=== PATIENT | male | born 1940 | race Caucasian/White ===

== ENCOUNTER 2018-06-30 08:19 | Emergency (ER) | payer MEDICARE, BC ==
[~2018-06-30] VITALS: Ht 170.2 cm; Wt 99.0 kg
[2018-06-30 08:25] VITALS: BP 130/80
[2018-06-30] MEDS ORDERED: pantoprazole 40mg Tablet.DR PO ONE (09:20)
[2018-06-30] MEDS ORDERED: famotidine 20mg tablet PO ONE (09:20)
== END 2018-06-30 10:34 | disposition home or self-care (01) ==
LOC: ER 08:20
DX: R07.89 Other chest pain (principal); M54.9 Dorsalgia, unspecified; E78.00 Pure hypercholesterolemia, unspecified; I10 Essential (primary) hypertension; K21.9 Gastro-esophageal reflux disease without esophagitis
CPT/HCPCS: 36415; 84484; 93005; 99284

== ENCOUNTER 2019-04-20 12:50 | Day surgery (SDC) | payer MEDICARE, BC ==
[~2019-04-20] VITALS: Ht 170.2 cm; Wt 95.1 kg
[~2019-04-20 12:50] MED LIST: LISI40TA4 PO; SIMV-42 PO; famotidine 20mg tablet PO ONE; ringers solution, lacted 1,000 ML IV SCH
[2019-04-20] MEDS ORDERED: cefazolin/dext.iso 2gm/50ml 50 ML IV ONE (13:45)
[2019-04-20] MEDS ORDERED: BUPIVAcaine/PF 2.5 mg/ml (0.25%) 30ml vial ONE (13:46)
[2019-04-20] MEDS ORDERED: LIDOcaine 1% 30ml preserv. free vial ONE (13:46)
[2019-04-20 14:08] VITALS: BP 122/80
[2019-04-20 14:12] VITALS: BP 122/80
[2019-04-20 14:17] LABS: ALBUMIN 4.2 G/DL (3.4-5.0); ALBUMIN/GLOBULIN RATIO 1.3 (1.1-1.5); ALKALINE PHOSPHATASE 53 IU/L (46-116); BLOOD UREA NITROGEN 26 MG/DL (7-18); BUN/CREATININE RATIO 23.6 (5.4-32.0); CALCIUM 8.7 MG/DL (8.5-10.1); CHLORIDE 106 MMOL/L (99-107); PRE OP ALT 38 U/L (30-65); PRE OP ANION GAP 11 (8-16); PRE OP AST 32 U/L (10-37); PRE OP BILIRUB, TOTAL 1.3 MG/DL (0.0-1.0); PRE OP GLUCOSE 94 MG/DL (70-104); PRE OP POTASSIUM 4.1 MMOL/L (3.4-5.1); PRE OP SODIUM 141 MMOL/L (135-145); TOTAL CARBON DIOXIDE 24.3 MMOL/L (24-32); TOTAL PROTEIN 7.5 G/DL (6.4-8.2); eGFR 65 ML/MIN
[2019-04-20 14:19] LABS: BASOPHILS % (AUTO) 0.8 % (0-1); EOSINOPHILS # (AUTO) 0.1 X10'3 (0-0.9); EOSINOPHILS % (AUTO) 1.2 % (0-6); LYMPHOCYTES # (AUTO) 1.6 X10'3 (1.1-4.8); MEAN CORPUSCULAR HGB CONC 34.4 g/dL (33.0-36.5); MEAN CORPUSCULAR VOLUME 98.7 FL (78-98); MEAN PLATELET VOLUME 9.4 FL (7.4-10.4); MONOCYTES # (AUTO) 0.3 X10'3 (0-0.9); MONOCYTES % (AUTO) 7.4 % (2-12); NEUTROPHILS # (AUTO) 2.7 X10'3 (1.8-7.7); NEUTROPHILS % (AUTO) 56.6 % (42-75); PRE OP HEMATOCRIT 43.7 % (42.0-52.0); PRE OP HEMOGLOBIN 15.1 g/dL (14.0-17.9); PRE OP PLATELET COUNT 130 X10'3 (140-440); RED BLOOD COUNT 4.43 X10'6 (4.70-6.10); RED CELL DISTRIBUTION WIDTH 13.5 % (11.5-14.5)
[2019-04-20] MEDS ORDERED: fentaNYL/PF 50MCG/1 ML 2ML syringe ONE (14:29)
[2019-04-20] MEDS ORDERED: MIDAZolam 5mg/5ml vial ONE (14:29)
[2019-04-20 15:15] VITALS: BP 109/77
--- NOTE | 2019-04-20 15:15 | NUR ---
ADMITTED TO PACU FROM OR ACCOMPANIED BY ANESTHESIA. INTIAL PHYSICAL ASSESSMENT DONE AND RECORDED. AWAKE AND RESPONSE ON ARRIVE YO PACU, REPORT RECEIVED FROM ANESTHESIA.
[2019-04-20 15:25] VITALS: BP 108/78
[2019-04-20 15:35] VITALS: BP 110/70
[2019-04-20 15:45] VITALS: BP 107/75
--- NOTE | 2019-04-20 16:00 | NUR ---
Discharge criteria met, discharge instructions given, demonstrates verbal understanding. Discharged home in good condition.
[2019-04-20] MEDS ORDERED: ringers solution, lacted 1,000 ML IV SCH (16:38)
[2019-04-20] MEDS ORDERED: ondansetron/PF 4mg/2ml inj IV PRN (16:40)
[2019-04-20] MEDS ORDERED: meperidine/PF 25mg/ml syringe IV PRN ×3 (16:40)
[2019-04-20] MEDS ORDERED: proCHLORperazine 10 MG/2 ml inj IV PRN (16:40)
[2019-04-20] MEDS ORDERED: morphine 4 MG/ML inj SYRINge IV PRN ×2 (16:40)
== END 2019-04-20 16:00 | disposition home or self-care (01) ==
LOC: PAS 12:50
PROVIDERS: ATTEND Surgery
DX: R22.31 Localized swelling, mass and lump, right upper limb (principal); D17.21 Benign lipomatous neoplasm of skin and subcutaneous tissue of right arm; I10 Essential (primary) hypertension; E78.5 Hyperlipidemia, unspecified; Z98.890 Other specified postprocedural states; Z79.899 Other long term (current) drug therapy; Z83.3 Family history of diabetes mellitus; Z82.49 Family history of ischemic heart disease and other diseases of the circulatory system
CPT/HCPCS: 24073; 36415; 80053; 85025; 93005; J2001; J2250; J3010; J3490; 88304; A4215; A6449; J7120